=== PATIENT | male | born 1970 | race American Indian/Alaskan Native ===

== ENCOUNTER 2018-01-25 09:36 | Outpatient (CLI) | payer MEDICARE ==
--- NOTE | 2018-01-30 15:12 | Vascular Lab Report ---
Right Lower Extremity Venous Duplex Study: Reason for Exam: Pain and swelling of the right lower extremity. Comments on the Right: All veins visualized are freely compressible without evidence of internal echogenicity. Flow is spontaneous and phasic throughout. No evidence of acute or chronic thrombus is seen in any of the vessels visualized. There are soft tissue changes in the proximal lateral calf of unknown clinical significance. Comments on the Left: A limited duplex study was done of the proximal veins of the left lower extremity. All veins visualized are freely compressible without evidence of internal echogenicity. Flow is spontaneous and phasic throughout. No evidence of acute or chronic thrombus is seen in any of the vessels visualized. Impression: No evidence of acute or chronic deep venous thrombosis in the right lower extremity. Soft tissue changes are noted in the proximal lateral right calf of unknown clinical significance.
== END 2018-01-25 09:37 | disposition home or self-care (01) ==
LOC: VAS 09:36
DX: M79.604 Pain in right leg (principal); M79.89 Other specified soft tissue disorders